=== PATIENT | female | born 1950 | race Caucasian/White ===

== ENCOUNTER → 2016-11-09 | Outpatient (CLI) | payer BC ==
--- NOTE | 2016-11-09 15:38 | DI ---
LEFT KNEE, 11/09/2016 12:06 PM: Clinical History: Left anterior knee pain. Previous Exam: 05/01/2016. 3 views are submitted. There is no acute fracture or dislocation. No joint effusion is identified. Th ere is narrowing of the medial compartment indicating degenerative arthritic change. There is also mi ld lateral subluxation of the patella. Reading: No fracture or dislocation is present. Arthritic changes are present in the medial compartment. There is mild lateral subluxation of the patella.
== END ==
LOC: RAD 13:01
PROVIDERS: ATTEND Physician Assistant
DX: M25.562 Pain in left knee (principal); M17.12 Unilateral primary osteoarthritis, left knee; W18.39XA Other fall on same level, initial encounter
CPT/HCPCS: 73562

== ENCOUNTER → 2017-02-08 | Outpatient (CLI) | payer BC ==
[2017-02-08 16:24] LABS: BLOOD UREA NITROGEN 21 mg/dL (7-22); BUN/CREATININE RATIO 26.25 (6-20); CALCIUM 9.7 mg/dL (8.7-10.7); EST GLOMERULAR FILTRATION > 60 (>60 ml/min/1.73m(2))
== END ==
LOC: MOB LAB 14:16
PROVIDERS: ATTEND Nurse Practitioner Family
DX: I10 Essential (primary) hypertension (principal); R25.2 Cramp and spasm
CPT/HCPCS: 36415; 80048